=== PATIENT | male | born 1970 | race Caucasian/White ===

== ENCOUNTER 2018-02-19 23:24 | Inpatient (IN) | payer BC, OTHER ==
[~2018-02-19] VITALS: Ht 185.4 cm; Wt 152.8 kg
[2018-02-20 00:12] LABS: BASO % 0.4 %; BASO ABS # 0.03 K/uL (0-0.2); EOS % 2.6 %; EOS ABS # 0.19 K/uL (0-0.5); HEMATOCRIT 38.3 % (42-52); HEMOGLOBIN 13.3 g/dL (14.0-18.0); IG# 0.02 K/uL (0.00-0.02); LYMPH % 28.7 %; LYMPH ABS # 2.09 K/uL (1.2-3.4); MEAN CELL VOLUME 88.2 fL (80-100); MEAN CORPUSCULAR HEMOGLOBIN 30.6 pg (25-34); MEAN CORPUSCULAR HGB CONC 34.7 g/dl (32-36); MEAN PLATELET VOLUME 10.4 fL (7.4-10.4); MONO % 7.6 %; MONO ABS # 0.55 K/uL (0.11-0.59); NEUT % 60.4 %; NEUT ABS # 4.39 K/uL (1.4-6.5); PLATELET COUNT 262 K/uL (130-400); RED CELL DISTRIBUTION WIDTH CV 13.1 % (11.5-14.5); WHITE BLOOD COUNT 7.27 K/uL (4.8-10.8)
[2018-02-20 00:29] LABS: ALBUMIN 3.9 gm/dl (3.4-5.0); ALT/SGPT 109 U/L (12-78); AST/SGOT 72 U/L (15-37); BLOOD UREA NITROGEN 15 mg/dl (7-18); CALCIUM 8.8 mg/dl (8.5-10.1); CARBON DIOXIDE 28 mmol/L (21-32); CREATININE 0.91 mg/dl (0.60-1.40); GLUCOSE 185 mg/dl (70-99); LIPASE 97 U/L (73-393); POTASSIUM 3.3 mmol/L (3.5-5.1); SODIUM 137 mmol/L (136-145)
[2018-02-20 00:43] LABS: ALKALINE PHOSPHATASE 78 U/L (45-117); CKMB 12.7 ng/ml (0.5-3.6)
[2018-02-20] MEDS ORDERED: SODIUM CHLORIDE 0.9% 1000ML 1,000 ML IV STA (01:20)
[2018-02-20] MEDS ORDERED: LSN/10125 PO (01:30)
[2018-02-20] MEDS ORDERED: [UNRECOGNIZED DRUG - CODE] PO (01:33)
[2018-02-20] MEDS ORDERED: IBUP1CAP9 PO (01:33)
[2018-02-20] MEDS ORDERED: CHOL1000 PO (01:33)
[2018-02-20] MEDS ORDERED: CLR10 PO (01:33)
[2018-02-20] MEDS ORDERED: ASCA500 PO (01:33)
[2018-02-20] MEDS ORDERED: B-COTAB18 PO (01:33)
[2018-02-20] MEDS ORDERED: MISC1CAP69 PO (01:33)
[2018-02-20] MEDS ORDERED: OPTIRAY 320 IV PRN (01:45)
[2018-02-20] MEDS ORDERED: LACTATED RINGER'S 1000ML 1,000 ML IV STA (02:29)
[2018-02-20] MEDS ORDERED: POTASSIUM CHLORIDE 10 MEQ TABCR PO STA (02:38)
--- NOTE | 2018-02-20 03:05 | EMERGENCY ROOM VISIT NOTE ---
History Report prepared by Charito: Katt Middleton Under the Supervision of: Dr. Mendez Sue M.D. First contact with patient: 23:38 Chief Complaint: GI ASSESSMENT Stated Complaint: CHEST DISCOMFORT, BLOATED, HEAVY BREATHING Nursing Triage Summary: Pt c/o of upper abdominal pain that radiates to right shoulder since Saturday. Pt also stated he has had frequent belching, denies nausea or vomiting. Pt states he started a "diet pill" Saturday that was prescribed by his PCP. Pt also states he has been under a lot of stress lately, verbalizes history of anxiety. History of Present Illness The patient is a 47 year old male who presents to the Emergency Room with complaints of intermittent chest pain starting yesterday. The pain radiates to his right shoulder. It does not change with movement, breathing, exertion, or eating. He has not taken anything for his pain. He reports cold sweats and acid reflux symptoms last night. He was unable to sleep well. He has been SOB with exertion. He reports cough. His blood pressure has been higher than normal. He notes that he has gained 35-40 lbs in the past 3-4 months. He has had some swelling to the legs. He has been under increased stress recently. His left with the children, leaving him alone. He admits to frequent alcohol use recently, but stopped drinking 3 days ago. He recently started smoking again. He reports a history of anxiety. He denies any thoughts of hurting himself or others. Pt denies LOC, headache, fevers, visual changes, neck pain, tearing pain radiating to the back, personal history or family history of aneurysm or pulmonary embolism, coagulation abnormalities, prolonged travel, recent surgery or immobilization, nausea, vomiting, abdominal pain, melena, hematochezia, urinary symptoms, numbness, weakness, lymphadenopathy, rash, or other complaints. Source of History: patient Onset: yesterday Position: chest Symptom Intensity: 10 Quality: other (pain) Timing: intermittent Modifying Factors (Worsening): other (none) Associated Symptoms: + chills, + diaphoresis, + cough, + SOB Note: Pt reports weight gain, high blood pressure. Review of Systems See HPI for pertinent positives and negatives. A total of ten systems were reviewed and were otherwise negative. Past Medical & Surgical Medical Problems: (1) Hypertension Family History Hypertension Social History Smoking Status: Never Smoker Housing Status: lives alone Current/Historical Medications Scheduled Ascorbic Acid (Vitamin C), 500 MG PO DAILY B-Complex Vitamins (Vitamin B Complex), 1 TAB PO DAILY Cholecalciferol (Vitamin D3), 1 TAB PO DAILY Hctz/Lisinopril (Lisinopril/Hctz 10/12.5 Mg), 1 TAB PO DAILY Ibuprofen (Ibuprofen), 400-600 MG PO QAM Loratadine (Claritin), 10 MG PO DAILY Misc Natural Products ([employer]), 1 DOSE PO DAILY Multiple Vitamins W/ Iron (Multiple Vitamins/Iron), 1 TAB PO DAILY Allergies Coded Allergies: No Known Allergies (Verified , 02/20/18) Physical Exam Vital Signs Date Time Temp Pulse Resp B/P (MAP) Pulse Ox O2 Delivery O2 Flow Rate FiO2 02/20/18 01:19 90 20 150/95 98 Room Air 02/20/18 00:21 95 02/20/18 00:09 97 Room Air 02/20/18 00:09 97 Room Air 02/19/18 23:29 36.4 110 18 161/107 97 Room Air Physical Exam GENERAL: Awake, alert, mildly depressed-appearing, in no distress HENT: Normocephalic, atraumatic. Oropharynx unremarkable. EYES: Normal conjunctiva. Sclera non-icteric. NECK: Supple. No nuchal rigidity. FROM. No masses. RESPIRATORY: Clear to auscultation. No wheezes. No rales. Normal respiratory effort. CARDIAC: Borderline tachycardic rate. Normal rhythm. No murmurs. No rubs. Extremities warm and well perfused. Pulses equal. No JVD. GI: Soft, non-distended. No tenderness to palpation. No rebound or guarding. No masses. RECTAL: Deferred. MUSCULOSKELETAL: Atraumatic. Chest examination reveals mild right anterior chest wall tenderness. The back is symmetrical on inspection without obvious abnormality. There is no CVA tenderness to palpation. No joint edema. LOWER EXTREMITIES: Calves are equal size bilaterally and non-tender. Trace edema. No discoloration. NEURO: Normal sensorium. No sensory or motor deficits noted. SKIN: No rash or jaundice noted. PSYCH: No SI. No HI. Mildly depressed mood, flat affect. Medical Decision & Procedures ER Provider Diagnostic Interpretation: Chest x-ray. Findings: A chest x-ray was performed and revealed no pneumothorax , effusion, infiltrate, pulmonary edema, free air under the diaphragm, or wide mediastinum. Laboratory Results 02/19/18 23:55 Red Blood Count 4.34, Mean Corpuscular Volume 88.2, Mean Corpuscular Hemoglobin 30.6, Mean Corpuscular Hemoglobin Concent 34.7, Mean Platelet Volume 10.4, Neutrophils (%) (Auto) 60.4, Lymphocytes (%) (Auto) 28.7, Monocytes (%) (Auto) 7.6, Eosinophils (%) (Auto) 2.6, Basophils (%) (Auto) 0.4, Neutrophils # (Auto) 4.39, Lymphocytes # (Auto) 2.09, Monocytes # (Auto) 0.55, Eosinophils # (Auto) 0.19, Basophils # (Auto) 0.03 02/19/18 23:55 Test 02/19/18 23:55 02/20/18 00:09 White Blood Count 7.27 K/uL (4.8-10.8) Red Blood Count 4.34 M/uL (4.7-6.1) Hemoglobin 13.3 g/dL (14.0-18.0) Hematocrit 38.3 % (42-52) Mean Corpuscular Volume 88.2 fL (80-100) Mean Corpuscular Hemoglobin 30.6 pg (25-34) Mean Corpuscular Hemoglobin Concent 34.7 g/dl (32-36) Platelet Count 262 K/uL (130-400) Mean Platelet Volume 10.4 fL (7.4-10.4) Neutrophils (%) (Auto) 60.4 % Lymphocytes (%) (Auto) 28.7 % Monocytes (%) (Auto) 7.6 % Eosinophils (%) (Auto) 2.6 % Basophils (%) (Auto) 0.4 % Neutrophils # (Auto) 4.39 K/uL (1.4-6.5) Lymphocytes # (Auto) 2.09 K/uL (1.2-3.4) Monocytes # (Auto) 0.55 K/uL (0.11-0.59) Eosinophils # (Auto) 0.19 K/uL (0-0.5) Basophils # (Auto) 0.03 K/uL (0-0.2) RDW Standard Deviation 42.0 fL (36.4-46.3) RDW Coefficient of Variation 13.1 % (11.5-14.5) Immature Granulocyte % (Auto) 0.3 % Immature Granulocyte # (Auto) 0.02 K/uL (0.00-0.02) Anion Gap 8.0 mmol/L (3-11) Est Creatinine Clear Calc Drug Dose 156.0 ml/min Estimated GFR () 116.7 Estimated GFR (Non- 100.7 BUN/Creatinine Ratio 16.1 (10-20) Calcium Level 8.8 mg/dl (8.5-10.1) Total Bilirubin 0.5 mg/dl (0.2-1) Direct Bilirubin 0.2 mg/dl (0-0.2) Aspartate Amino Transf (AST/SGOT) 72 U/L (15-37) Alanine Aminotransferase (ALT/SGPT) 109 U/L (12-78) Alkaline Phosphatase 78 U/L (45-117) Total Creatine Kinase 1388 U/L (39-308) Creatine Kinase MB 12.7 ng/ml (0.5-3.6) Creatine Kinase MB Ratio 0.9 (0-3.0) Troponin I < 0.015 ng/ml (0-0.045) Total Protein 8.0 gm/dl (6.4-8.2) Albumin 3.9 gm/dl (3.4-5.0) Lipase 97 U/L (73-393) Bedside D-Dimer > 450 ng/mlFEU (0-450) Laboratory results reviewed by me Medications Administered Medications (Trade) Dose Ordered Sig/Carlie Route Start Time Stop Time Status Last Admin Dose Admin Sodium Chloride 1,000 ml @ 999 mls/hr Q1H1M STAT IV 02/20/18 01:20 02/20/18 02:20 DC 02/20/18 01:31 999 MLS/HR Lactated Ringer's 1,000 ml @ 200 mls/hr Q5H STAT IV 02/20/18 02:29 02/20/18 07:28 02/20/18 02:45 200 MLS/HR ECG Per My Interpretation Indication: chest pain Rate (beats per minute): 93 Rhythm: normal sinus Findings: no acute ischemic change, no ectopy, other (normal intervals) ED Course 2339: The patient was evaluated in room C9. A complete history and physical exam was performed. 0120: NSS 1000 ml @ 999 mls/hr IV. 0124: I reevaluated the patient. I updated him on the results. Medical Decision Triage Nursing notes reviewed and agree them. The patient's history was concerning for chest pain. Differential diagnosis: Etiologies such as cardiac ischemia, aortic dissection, pulmonary embolism, pneumonia, pneumothorax, musculoskeletal, infections, pericarditis, myocarditis , esophageal rupture, gastrointestinal, as well as others were entertained. Physical examination: As above. ER treatment provided: Normal saline hydration 1 L bolus Lactated Ringer's at 200 mL an hour On reassessment the patient was stable Diagnostic interpretation by me: The electrocardiogram was negative for pathologic change. The labs revealed an unremarkable CBC. Chemistry panel revealed mild elevation of AST and ALT. Troponin negative. Total CK markedly elevated at 1388. The patient's d-dimer was mildly elevated. Imaging studies: Chest x-ray as above. CT scan pending. The patient has chest pain. He has concerning elevation of his total CK consistent with rhabdomyolysis. Consultation: A consultation was placed with the hospitalist. The case was discussed and diagnostics were reviewed. The patient was evaluated in the ER for further treatment. Medication Reconcilliation Current Medication List: was personally reviewed by me Blood Pressure Screening Patient's blood pressure: Elevated blood pressure Consults Time Called: [phone] Consulting Physician: Dr. Quiroz Returned Call: [phone] Discussed the patient's history and presentation. He will evaluate the patient for further management. Impression Primary Impression: Right-sided chest pain Additional Impression: Rhabdomyolysis Scribe Attestation The scribe's documentation has been prepared under my direction and personally reviewed by me in its entirety. I confirm that the note above accurately reflects all work, treatment, procedures, and medical decision making performed by me. Departure Information Dispostion Being Evaluated By Hospitalist Referrals Eliecer Dumont M.D. (PCP) Patient Instructions My [facility] Problem Qualifiers
[2018-02-20 03:07] VITALS: O2SAT 97
[2018-02-20] MEDS ORDERED: PANTOprazole SOD 40 MG TAB PO ONE (03:38)
[2018-02-20] MEDS ORDERED: LISINOPRIL 10 MG TAB PO ONE (03:38)
[2018-02-20] MEDS ORDERED: LORAZEPAM 2 MG/ML 1 ML VIAL IV PRN (03:45)
[2018-02-20] MEDS ORDERED: MULTI-VITAMIN INFUSION INJ 10 ML, THIAMINE HCL INJ 100 MG, FoLIC ACID INJ 1 MG, POTASSI... IV ONE ×5 (03:45)
[2018-02-20] MEDS ORDERED: MoRPHine SULFATE 4 MG/ML 1 ML CARP\\VIAL IV PRN (03:45)
[2018-02-20] MEDS ORDERED: ACETAMINOPHEN 325 MG TAB PO PRN (03:45)
[2018-02-20] MEDS ORDERED: OXYCODONE HCL IR 5 MG TAB (IMMEDIATE RELEASE) PO PRN (03:45)
[2018-02-20] MEDS ORDERED: PROCHLORPERAZINE INJ 5 MG in SYRINGE 4 ML IV PRN (03:45)
[2018-02-20] MEDS ORDERED: NITROGLYCERIN 0.4 MG SL PER TAB CHARGE SL PRN (03:45)
[2018-02-20] MEDS ORDERED: SODIUM CHLORIDE 0.9% 1000ML 1,000 ML IV ONE (03:45)
[2018-02-20] MEDS ORDERED: GABAPENTIN 600 MG TAB PO SCH (03:45)
[2018-02-20 04:00] VITALS: BP 155/99; PULSE 89; TEMP 36.9; O2SAT 95; Ht 185.4 cm; Wt 152.8 kg
[2018-02-20] MEDS ORDERED: GABAPENTIN 1200MG LOADING DOSE PO ONE (04:30)
[2018-02-20] MEDS ORDERED: NURSING VERBAL MED ORDER ONE (05:00)
[2018-02-20 05:33] LABS: BASO % 0.5 %; BASO ABS # 0.03 K/uL (0-0.2); EOS % 4.4 %; EOS ABS # 0.24 K/uL (0-0.5); HEMATOCRIT 35.3 % (42-52); HEMOGLOBIN 12.3 g/dL (14.0-18.0); IG# 0.02 K/uL (0.00-0.02); LYMPH % 31.6 %; LYMPH ABS # 1.73 K/uL (1.2-3.4); MEAN CELL VOLUME 89.1 fL (80-100); MEAN CORPUSCULAR HEMOGLOBIN 31.1 pg (25-34); MEAN CORPUSCULAR HGB CONC 34.8 g/dl (32-36); MEAN PLATELET VOLUME 9.8 fL (7.4-10.4); MONO % 7.5 %; MONO ABS # 0.41 K/uL (0.11-0.59); NEUT % 55.6 %; NEUT ABS # 3.04 K/uL (1.4-6.5); PLATELET COUNT 209 K/uL (130-400); RED CELL DISTRIBUTION WIDTH CV 13.3 % (11.5-14.5); RED CELL DISTRIBUTION WIDTH SD 43.3 fL (36.4-46.3); WHITE BLOOD COUNT 5.47 K/uL (4.8-10.8)
[2018-02-20 06:02] LABS: ALBUMIN 3.5 gm/dl (3.4-5.0); ALKALINE PHOSPHATASE 68 U/L (45-117); ALT/SGPT 95 U/L (12-78); AST/SGOT 64 U/L (15-37); BLOOD UREA NITROGEN 12 mg/dl (7-18); CALCIUM 8.2 mg/dl (8.5-10.1); CARBON DIOXIDE 28 mmol/L (21-32); CREATININE 0.75 mg/dl (0.60-1.40); GLUCOSE 156 mg/dl (70-99); POTASSIUM 3.8 mmol/L (3.5-5.1); SODIUM 138 mmol/L (136-145)
--- NOTE | 2018-02-20 06:05 | DIAGNOSTIC IMAGING REPORT ---
(CHEST FOR PE) ANGIO WITH CT DOSE: 552.34 mGycm HISTORY: Chest pain dyspnea TECHNIQUE: Multiaxial CT images of the chest were performed following the intravenous administration of contrast to evaluate the pulmonary arteries. Maximal intensity projection images were also obtained. A dose lowering technique was utilized adhering to the principles of ALARA. COMPARISON STUDY: None. FINDINGS: There is a normal caliber thoracic aorta with no evidence for dissection. There is no evidence for pulmonary embolus. No pleural effusions. No pneumothorax. The liver and spleen are unremarkable. No mediastinal or hilar lymphadenopathy. The central airways are patent. The lungs are clear. Fatty infiltration of liver IMPRESSION: No evidence for pulmonary embolus. Lungs are clear. Fatty infiltration of the liver. The above report was generated using voice recognition software. It may contain grammatical, syntax or spelling errors. Electronically signed by: Joe Vega M.D. 02/20/2018 6:03 AM Dictated Date/Time: 02/20/2018 6:02 AM
--- NOTE | 2018-02-20 07:29 | DIAGNOSTIC IMAGING REPORT ---
SINGLE VIEW CHEST CLINICAL HISTORY: Atypical chest pain. FINDINGS: An AP, portable, upright chest radiograph is obtained. No prior studies are available for comparison at the time of dictation. The examination is degraded by portable technique and patient rotation. The cardiomediastinal silhouette is unremarkable. There is mild elevation right hemidiaphragm. The lungs and pleural spaces are clear. No pneumothorax is seen. The bony thorax is grossly intact. IMPRESSION: No acute cardiopulmonary abnormality. Electronically signed by: Iggy Cobian M.D. 02/20/2018 7:28 AM Dictated Date/Time: 02/20/2018 7:28 AM
[2018-02-20 07:50] VITALS: BP 134/81; PULSE 80; TEMP 36.6; O2SAT 98
--- NOTE | 2018-02-20 07:50 | HISTORY & PHYSICAL EXAMINATION ---
DATE OF ADMISSION: 02/20/2018 PRIMARY CARE PHYSICIAN: Dr. Dumont. CHIEF COMPLAINT: Chest pain. HISTORY OF PRESENT ILLNESS: History obtained from patient and records. Medical history significant for hypertension, past tobacco abuse, alcohol abuse , prediabetes as per records, istory of chronic anemia (baseline hemoglobin of 13) . Patient admits to increased alcohol intake secondary to family issues about 5 days ago, passing out from too much drinking. Yesterday he had burning epigastric discomfort going to the chest which she thinks is from reflux. Upon checking his blood pressure, SBP noted to be 150s. Patient thinks he might be depressed, denies suicidality. Patient currently comfortable at the ER. MEDICAL HISTORY: As above. No history of seizures or intubation from alcohol withdrawal. About 2 weeks ago, the patient seen at PCP's office for pedal edema from [facility]. SBP noted to be 150s. Patient started on lisinopril HCTZ. Amlodipine stopped. SURGERIES: Vasectomy and tonsillectomy. HOME MEDICATIONS: Lisinopril HCTZ. ALLERGIES: POLLEN, NORVASC. FAMILY HISTORY: Alcoholism. PERSONAL AND SOCIAL HISTORY: Past tobacco abuse, ongoing alcohol abuse, skills director. REVIEW OF SYSTEMS: As per HPI. All 10 systems reviewed. All other ROS negative. PHYSICAL EXAMINATION: VITAL SIGNS: Blood pressure was noted to be 161/107, pulse rate 90, RR 20, temperature 37, O2 sats 92 on room air. GENERAL: Slightly anxious, obese. No respiratory distress. SKIN: Pallor, warm. HEENT: Pale palpebral conjunctiva. No ptosis. Dry mucosa. NECK: Short, supple. CHEST: Decreased breath sounds. Nontender. HEART: Regular rate and rhythm, no murmur, no tenderness. ABDOMEN: Some distention, nontender. EXTREMITIES: No edema. No gross deformity. No tenderness NEUROLOGIC: Coherent. No gross focality. LABORATORIES: Hemoglobin was noted to be 13.3, hematocrit 32.7, white blood cell count 10, platelets 262. Sodium noted to be 137, potassium 3.5, chloride 101, CO1 28, BUN 15, creatinine 0.9, glucose 185, AST 72, ALT 109. CK was noted to be 1388. CT chest, no PE on initial read. EKG as per my interpretation, rate 90, normal sinus rhythm, no ischemia. ASSESSMENT: 1. Chest pain multifactorial : Hypertensive urgency secondary to alcohol withdrawal. Uncontrolled gastroesophageal reflux disease. 2. Hypokalemia secondary to diuretic therapy. 3. Mild rhabdomyolysis secondary to immobility following alcohol intoxication from a few days ago 4. possible mood disorder. 5. Past tobacco abuse. 6. Prediabetes as per records. 7. Chronic anemia, hemoglobin at baseline. PLAN: PCU titrate lisinopril. Replace potassium. Hold home diuretic for now. Initiate PPI for GERD. IVF for rhabdomyolysis follow CPK DT precautions. Inpatient psychiatric evaluation for possible depression if patient agreeable Social service RE discharge planning. Check hemoglobin A1c. DVT prophylaxis, Lovenox subQ. Full code. MTDD
[2018-02-20] MEDS ORDERED: ENOXAPARIN 40 MG/0.4 ML SYR SC SCH (08:00)
[2018-02-20] MEDS ORDERED: CALCIUM GLUCONATE 10% 1,000 MG in SODIUM CHLORIDE 0.9% 50ML 50 ML IV STA (08:29)
[2018-02-20] MEDS: GABAPENTIN 600MG Q6H DOSE PO SCH ×2 (09:01→15:47)
[2018-02-20 09:06] LABS: HEMOGLOBIN A1C 7.4 % (4.5-5.6)
[2018-02-20 12:25] VITALS: BP 149/80; PULSE 86; TEMP 36.7; O2SAT 98
[2018-02-20 15:20] VITALS: BP 134/87; PULSE 70; TEMP 36.8; O2SAT 98
[2018-02-20 15:52] VITALS: BP 134/87; PULSE 70; TEMP 36.8; O2SAT 98
--- NOTE | 2018-02-20 16:21 | Progress Note ---
Subjective Date of Service: Feb 20, 2018. Subjective Pt evaluation today including: conversation w/ patient, physical exam, lab review, review of studies, review of inpatient medication list Saw/examined the patient in room 233. Patient states he's doing okay, denies any chest pain or palpitations. Spoke to patient further and he became tearful about home situation and possible separation from his . He also mentions abusing alcohol recently due to home stressors; he stopped drinking on Saturday. Now attends AA meetings, first meeting was on February 17 and he would like to continue going to these meetings. His lower extremity swelling has improved after stopping CCB. He states he feels much better and would like to be discharged home. I informed him about the new diabetes diagnosis; he is agreeable to start oral medications for this. Problem List Medical Problems: (1) Rhabdomyolysis Status: Acute (2) Right-sided chest pain Status: Acute Review of Systems Constitutional: No fever, No chills Respiratory: No cough, No sputum, No wheezing, No shortness of breath, No dyspnea on exertion, No dyspnea at rest, No hemoptysis Cardiac: + edema (improving), No chest pain (resolved), No palpitations Abdomen: No pain, No nausea, No vomiting, No diarrhea Musculoskeletal: No joint pain Male : No dysuria, No urinary frequency Psychiatric: + see HPI, + depression symptoms, + substance abuse, No anhedonism , No anxiety, No insomnia Heme: No abnormal bleeding/bruising Medications Current Inpatient Medications Medications (Trade) Dose Ordered Sig/Carlie Route Start Time Stop Time Status Last Admin Dose Admin Ioversol (Optiray 320) 125 ml UD PRN IV 02/20/18 01:45 02/24/18 01:44 Enoxaparin Sodium (Lovenox Inj) 40 mg Q24H SC 02/20/18 08:00 03/22/18 07:59 02/20/18 09:00 40 MG Acetaminophen (Tylenol Tab) 325 mg Q6H PRN PO 02/20/18 03:45 03/22/18 03:44 Nitroglycerin (Nitrostat Tab) 0.4 mg UD PRN SL 02/20/18 03:45 03/22/18 03:44 Oxycodone HCl (Roxicodone Immediate Rel Tab) 5 mg Q4H PRN PO 02/20/18 03:45 03/06/18 03:44 Prochlorperazine Edisylate 5 mg/ Syringe 5 ml @ 5 mls/min Q6H PRN IV 02/20/18 03:45 03/22/18 03:44 Morphine Sulfate (MoRPHine SULFATE INJ) 4 mg Q3H PRN IV 02/20/18 03:45 03/06/18 03:44 Pantoprazole Sodium (Protonix Tab) 40 mg QAM PO 02/21/18 09:00 03/23/18 08:59 Lisinopril (Zestril Tab) 10 mg QAM PO 02/21/18 09:00 03/23/18 08:59 Lorazepam (Ativan Inj) PRN Dosing -Active Protocol Q1H PRN IV 02/20/18 03:45 03/22/18 03:44 Thiamine HCl (Vitamin B-1 Tab) 100 mg QAM PO 02/21/18 09:00 03/23/18 08:59 Multivitamins (Multivitamin Tab) 1 tab QAM PO 02/21/18 09:00 03/23/18 08:59 Folic Acid (Folvite Tab) 1 mg QAM PO 02/21/18 09:00 03/23/18 08:59 Gabapentin (Neurontin Tab) 600 mg Q8H PO 02/21/18 00:00 02/21/18 16:01 Gabapentin (Neurontin Tab) 600 mg Q12H PO 02/22/18 06:00 02/22/18 18:01 Gabapentin (Neurontin Tab) 600 mg Q24H PO 02/23/18 18:00 02/23/18 18:01 Objective Vital Signs Date Time Temp Pulse Resp B/P (MAP) Pulse Ox O2 Delivery O2 Flow Rate FiO2 02/20/18 15:52 36.8 70 20 98 Room Air 02/20/18 15:20 36.8 70 20 134/87 (103) 98 Room Air 02/20/18 12:25 36.7 86 16 149/80 (103) 98 Room Air 02/20/18 12:00 Room Air 02/20/18 08:00 Room Air 02/20/18 07:50 36.6 80 16 134/81 (98) 98 Room Air 02/20/18 04:00 36.9 89 20 155/99 (117) 95 Room Air 02/20/18 04:00 36.9 89 20 155/99 02/20/18 03:07 83 20 137/80 97 Room Air 02/20/18 01:19 90 20 150/95 98 Room Air 02/20/18 00:21 95 02/20/18 00:09 97 Room Air 02/20/18 00:09 97 Room Air 02/19/18 23:29 36.4 110 18 161/107 97 Room Air Physical Exam General Appearance: no apparent distress, + obese, + pertinent finding ( tearful at times during exam) Respiratory/Chest: chest non-tender, lungs clear, normal breath sounds, no respiratory distress, no accessory muscle use Cardiovascular: regular rate, rhythm, no murmur Abdomen: normal bowel sounds, non tender, soft Extremities: + swelling (+1 pitting edema b/l LE), + pertinent finding Neurologic/Psychiatric: no motor/sensory deficits, alert, normal mood/affect Laboratory Results Last 24 Hours Test 02/19/18 23:55 02/20/18 00:09 02/20/18 02:55 02/20/18 05:17 White Blood Count 7.27 K/uL 5.47 K/uL Red Blood Count 4.34 M/uL 3.96 M/uL Hemoglobin 13.3 g/dL 12.3 g/dL Hematocrit 38.3 % 35.3 % Mean Corpuscular Volume 88.2 fL 89.1 fL Mean Corpuscular Hemoglobin 30.6 pg 31.1 pg Mean Corpuscular Hemoglobin Concent 34.7 g/dl 34.8 g/dl Platelet Count 262 K/uL 209 K/uL Mean Platelet Volume 10.4 fL 9.8 fL Neutrophils (%) (Auto) 60.4 % 55.6 % Lymphocytes (%) (Auto) 28.7 % 31.6 % Monocytes (%) (Auto) 7.6 % 7.5 % Eosinophils (%) (Auto) 2.6 % 4.4 % Basophils (%) (Auto) 0.4 % 0.5 % Neutrophils # (Auto) 4.39 K/uL 3.04 K/uL Lymphocytes # (Auto) 2.09 K/uL 1.73 K/uL Monocytes # (Auto) 0.55 K/uL 0.41 K/uL Eosinophils # (Auto) 0.19 K/uL 0.24 K/uL Basophils # (Auto) 0.03 K/uL 0.03 K/uL RDW Standard Deviation 42.0 fL 43.3 fL RDW Coefficient of Variation 13.1 % 13.3 % Immature Granulocyte % (Auto) 0.3 % 0.4 % Immature Granulocyte # (Auto) 0.02 K/uL 0.02 K/uL Sodium Level 137 mmol/L 138 mmol/L Potassium Level 3.3 mmol/L 3.8 mmol/L Chloride Level 101 mmol/L 104 mmol/L Carbon Dioxide Level 28 mmol/L 28 mmol/L Anion Gap 8.0 mmol/L 6.0 mmol/L Blood Urea Nitrogen 15 mg/dl 12 mg/dl Creatinine 0.91 mg/dl 0.75 mg/dl Est Creatinine Clear Calc Drug Dose 156.0 ml/min 189.8 ml/min Estimated GFR () 116.7 127.5 Estimated GFR (Non- 100.7 110.0 BUN/Creatinine Ratio 16.1 16.6 Random Glucose 185 mg/dl 156 mg/dl Calcium Level 8.8 mg/dl 8.2 mg/dl Magnesium Level 2.1 mg/dl Total Bilirubin 0.5 mg/dl 0.6 mg/dl Direct Bilirubin 0.2 mg/dl Aspartate Amino Transf (AST/SGOT) 72 U/L 64 U/L Alanine Aminotransferase (ALT/SGPT) 109 U/L 95 U/L Alkaline Phosphatase 78 U/L 68 U/L Total Creatine Kinase 1388 U/L 1137 U/L Creatine Kinase MB 12.7 ng/ml Creatine Kinase MB Ratio 0.9 Troponin I < 0.015 ng/ml < 0.015 ng/ml Total Protein 8.0 gm/dl 7.0 gm/dl Albumin 3.9 gm/dl 3.5 gm/dl Lipase 97 U/L Thyroid Stimulating Hormone (TSH) 2.130 uIu/ml Bedside D-Dimer > 450 ng/mlFEU Urine Color YELLOW Urine Appearance CLEAR Urine pH 5.0 Urine Specific [place] > 1.045 Urine Protein NEG Urine Glucose (UA) NEG Urine Ketones NEG Urine Occult Blood NEG Urine Nitrite NEG Urine Bilirubin NEG Urine Urobilinogen NEG Urine Leukocyte Esterase NEG Urine Opiates Screen NEG Urine Methadone, Qualitative NEG Urine Barbiturates NEG Urine Phencyclidine (PCP) Level NEG Ur Amphetamine/Methamphetamine NEG MDMA (Ecstasy) Screen NEG Urine Benzodiazepines Screen NEG Urine Cocaine Metabolite NEG Urine Marijuana (THC) NEG Prothrombin Time 10.9 SECONDS Prothromb Time International Ratio 1.0 Estimated Average Glucose 166 mg/dl Hemoglobin A1c 7.4 % Globulin 3.5 gm/dl Albumin/Globulin Ratio 1.0 Ethyl Alcohol mg/dL < 3.0 mg/dl Assessment and Plan This is a 47 year old obese male with a PMH of hypertension, anxiety, prediabetes - presents with alcohol abuse, chest pain, and high blood pressure and subsequently found to have new onset diabetes Hypertensive Urgency - patient's blood pressure on admission > 160/100 - blood pressure improved now - will increase outpatient Lisinopril/HCTZ dose - outpatient blood pressure check with Dr. Dumont on February 25 at 11:05AM New Diagnosis of DM2 - Ha1c ~ 7.4% - patient had prediabetes previously - agreeable to start metformin - outpatient lab work - Ha1c q3 months; should get a urinary microalbumin level - patient to see client operations manager for weight loss help - already on an VERONICA-I for nephro-protection - will start aspirin 81mg - will start Lipitor 20mg Alcohol Abuse - recently has been abusing alcohol - has been going to AA meetings - would like to continue outpatient AA meetings - states he does not want to see psychiatrist or start any mediations for depression or anxiety - would like to cope on his own and states that once stressors in his life improve, he will be fine - PCP follow-up regarding mood and alcohol cessation Chest Pain Lower Extremity Edema - the chest pain is more likely related to reflux and recent alcohol use; could also be related to anxiety/mood - cardiac enzymes negative x3 - outpatient echo to evaluate lower extremity edema - starting on low dose aspirin DVT ppx - Lovenox FULL CODE
[2018-02-20] MEDS ORDERED: ASPI1TAB83 PO (16:26)
[2018-02-20] MEDS ORDERED: OMEP20TA14 PO (16:26)
[2018-02-20] MEDS ORDERED: LSN/2025 PO (16:26)
[2018-02-20] MEDS ORDERED: ATOR-54 PO (16:26)
[2018-02-20] MEDS ORDERED: METF500T5 PO (16:26)
--- NOTE | 2018-02-20 16:35 | Discharge Instructions ---
Discharge Instructions Date of Service Feb 20, 2018. Admission Reason for Admission: Alcohol Withdrawal Discharge Discharge Diagnosis / Problem: high blood pressure, diabetes, alcohol use Discharge Goals Goal(s): Decrease discomfort, Improve function, Diagnostic testing, Therapeutic intervention Activity Recommendations Activity Limitations: resume your previous activity . Instructions / Follow-Up Instructions / Follow-Up Please follow-up with Dr. Dumont on February 25 at 11:05AM * Your dose of Lisinopril/HCTZ will be doubled to 20mg/25mg - primary care should recheck the blood pressure in the office and adjust accordingly * You are now diagnosed with diabetes - you will be prescribed metformin for diabetes * You will be prescribed Lipitor for cholesterol - your LDL (bad cholesterol) was high * You will need a Ha1c and a fasting lipid profile in 3 months. You should also have your urine checked in three months * You will be started on aspirin 81mg (over the counter dose) * Outpatient echocardiogram to evaluate for lower extremity edema * Continue with your outpatient AA meetings * Talk to your primary care regarding alcohol cessation or anxiety/mood disorder Current Hospital Diet Patient's current hospital diet: AHA Diet (Heart Healthy) Discharge Diet Recommended Diet: AHA Diet (Heart Healthy) Pending Studies Studies pending at discharge: no Laboratory Results Hemoglobin A1c Test 02/20/18 05:17 Range/Units Estimated Average Glucose 166 mg/dl Hemoglobin A1c 7.4 H 4.5-5.6 % Medical Emergencies . Who to Call and When: Medical Emergencies: If at any time you feel your situation is an emergency, please call 911 immediately. . Non-Emergent Contact Non-Emergency issues call your: Primary Care Provider . . "Provider Documentation" section prepared by Sahara Merida. .
--- NOTE | 2018-02-20 16:39 | Discharge Summary ---
Discharge Summary Date of Service Feb 20, 2018. Discharge Summary Admission Date: Feb 20, 2018 at 03:00 Discharge Date: Feb 20, 2018 Discharge Disposition: Home Principal Diagnosis: Hypertensive Urgency New Diabetes Mellitus type 2 Alcohol Abuse Hyperlipidemia Obesity Medication Reconciliation New Medications: Aspirin (Aspirin) 81 Mg Tab 1 TAB PO DAILY for 30 Days, #30 TAB 3 Refills Atorvastatin (Lipitor) 20 Mg Tab 1 TAB PO DAILY for 90 Days, #90 TAB 1 Refill Metformin Hcl Er (Glucophage Er) 500 Mg Tab 500 MG PO BID for 30 Days, #60 TAB Omeprazole Magnesium (Prilosec Otc) 20 Mg Tab 1 TAB PO DAILY for 30 Days, #30 TAB 0 Refills Changed Medications: Hctz/Lisinopril (Lisinopril/Hctz 20/25 Mg) 1 Ea Tab 1 TAB PO DAILY for 30 Days, #30 TAB (Changed from: Hctz/Lisinopril (Lisinopril/ Hctz 10/12.5 Mg) 1 Ea Tab 1 Tab PO DAILY) Continued Medications: Ascorbic Acid (Vitamin C) 500 Mg Tab 500 MG PO DAILY B-Complex Vitamins (Vitamin B Complex) 1 Tab Tab 1 TAB PO DAILY Cholecalciferol (Vitamin D3) 1,000 Unit Tab 1 TAB PO DAILY, TAB 3 Refills Loratadine (Claritin) 10 Mg Tab 10 MG PO DAILY, TAB Misc Natural Products (Nexant) 1 Cap Cap 1 DOSE PO DAILY Multiple Vitamins W/ Iron (Multiple Vitamins/Iron) 1 Tab Tab 1 TAB PO DAILY Discontinued Medications: Ibuprofen (Ibuprofen) 200 Mg Cap 400-600 MG PO QAM Admission Information HPI (per Admitting provider): DATE OF ADMISSION: 02/20/2018 PRIMARY CARE PHYSICIAN: Dr. Dumont. CHIEF COMPLAINT: Chest pain. HISTORY OF PRESENT ILLNESS: History obtained from patient, records. The patient seen 02/20/2018. Medical history significant for hypertension, past tobacco abuse, alcohol abuse, prediabetes as per records, no mood disorder as per patient, history of chronic anemia baseline hemoglobin of 13. About 2 weeks ago, the patient seen at PCP's office for pedal edema from [facility]. SBP noted to be 150s. The patient started on lisinopril HCTZ, amlodipine stopped at home. The patient admits to increased alcohol intake secondary to family issues about 5 days ago, passing out from too much drinking. He had epigastric discomfort going to the chest. Upon checking his blood pressure, noted to be 150s. He went to the ER. Currently comfortable. MEDICAL HISTORY: As above. No history of ____ seizures from alcohol withdrawal. The patient thinks he might be depressed, denies suicidality. SURGERIES: Vasectomy and ____. HOME MEDICATIONS: Lisinopril HCTZ. ALLERGIES: POLLEN, NORVASC. FAMILY HISTORY: Alcoholism. 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 REVIEW OF SYSTEMS: As per HPI. All 10 systems reviewed. All other ROS negative. PHYSICAL EXAMINATION: VITAL SIGNS: Blood pressure was noted to be 161/107, later 159, pulse rate 90, RR 20, temperature ____, sats 92 on room air. GENERAL: Slightly anxious, obese. No respiratory distress. SKIN: Pallor, warm. HEENT: Pale palpebral conjunctiva. No ptosis. Dry mucosa. NECK: Short, supple. CHEST: Decreased breath sounds. Nontender. HEART: Regular rate and rhythm, no murmur, no tenderness. ABDOMEN: Some distention, nontender. EXTREMITIES: No edema. No gross deformity. NEUROLOGIC: Coherent. No gross focality. LABORATORIES: Hemoglobin was noted to be 13.3, hematocrit 32.7, white blood cell count ____, platelets 262. Sodium noted to be 137, potassium ____, chloride 101, CO1 28, BUN 15, creatinine 0.9, glucose 185, AST 72, ALT 109. CK was noted to be 1388. CT chest, no initial read. EKG as per my interpretation, rate 190, normal sinus rhythm, no ischemia. CK was ____, mild rhabdo. ASSESSMENT: 1. Chest pain multifactorial : Hypertensive urgency secondary to alcohol withdrawal. Uncontrolled gastroesophageal reflux disease. 2. Hypokalemia secondary to diuretic therapy. 3. Mild rhabdomyolysis secondary to immobility following alcohol intoxication from a few days ago 4. possible mood disorder. 5. Past tobacco abuse. 6. Prediabetes as per records. 7. Chronic anemia, hemoglobin at baseline. PLAN: PCU titrate lisinopril. Replace potassium. Hold home diuretic for now. Initiate PPI for GERD. IVF for rhabdomyolysis follow CPK DT precautions. Inpatient psychiatric evaluation for possible depression if patient agreeable Social service RE discharge planning. Check hemoglobin A1c. DVT prophylaxis, Lovenox subQ. Full code. Hospital Course This is a 47 year old obese male with a PMH of hypertension, anxiety, prediabetes - presents with alcohol abuse, chest pain, and high blood pressure and subsequently found to have new onset diabetes Hypertensive Urgency - patient's blood pressure on admission > 160/100 - blood pressure improved now - will increase outpatient Lisinopril/HCTZ dose - outpatient blood pressure check with Dr. Dumont on February 25 at 11:05AM New Diagnosis of DM2 - Ha1c ~ 7.4% - patient had prediabetes previously - agreeable to start metformin - outpatient lab work - Ha1c q3 months; should get a urinary microalbumin level - patient to see maintenance and engineering manager for weight loss help - already on an VERONICA-I for nephro-protection - will start aspirin 81mg - will start Lipitor 20mg Alcohol Abuse - recently has been abusing alcohol - has been going to AA meetings - would like to continue outpatient AA meetings - states he does not want to see psychiatrist or start any mediations for depression or anxiety - would like to cope on his own and states that once stressors in his life improve, he will be fine - PCP follow-up regarding mood and alcohol cessation Chest Pain Lower Extremity Edema - the chest pain is more likely related to reflux and recent alcohol use; could also be related to anxiety/mood - cardiac enzymes negative x3 - outpatient echo to evaluate lower extremity edema - starting on low dose aspirin DVT ppx - Lovenox FULL CODE Total time spent on discharge = 45 minutes This includes examination of the patient, discharge planning, medication reconciliation, and communication with other providers. Discharge Instructions Please follow-up with Dr. Dumont on February 25 at 11:05AM * Your dose of Lisinopril/HCTZ will be doubled to 20mg/25mg - primary care should recheck the blood pressure in the office and adjust accordingly * You are now diagnosed with diabetes - you will be prescribed metformin for diabetes * You will be prescribed Lipitor for cholesterol - your LDL (bad cholesterol) was high * You will need a Ha1c and a fasting lipid profile in 3 months. You should also have your urine checked in three months * You will be started on aspirin 81mg (over the counter dose) * Outpatient echocardiogram to evaluate for lower extremity edema * Continue with your outpatient AA meetings * Talk to your primary care regarding alcohol cessation or anxiety/mood disorder
[2018-02-21] MEDS ORDERED: GABAPENTIN 600MG Q8H DOSE PO SCH
[2018-02-21] MEDS ORDERED: LISINOPRIL 10 MG TAB PO SCH (09:00)
[2018-02-21] MEDS ORDERED: THIAMINE HCL 100 MG TAB PO SCH (09:00)
[2018-02-21] MEDS ORDERED: PANTOprazole SOD 40 MG TAB PO SCH (09:00)
[2018-02-21] MEDS ORDERED: MULTIVITAMIN TAB PO SCH (09:00)
[2018-02-22] MEDS ORDERED: GABAPENTIN 600MG Q12H DOSE PO SCH (06:00)
[2018-02-23] MEDS ORDERED: GABAPENTIN 600MG X1 DOSE PO SCH (18:00)
--- NOTE | 2018-02-25 11:39 | EDITING REQUIRED CODING QUERY ---
CODING QUERY To promote full compliance with coding requirements relating to patient care, provider participation is requested in all cases of wire coater uncertainty. Please assist us with the question(s) below: Coding Question(s): Please clarify for accurate coding purposes if the patient has: Alcohol Abuse ( ) Alcohol Dependence ( ) Other ( ) Unspecified ( ) Physician's Response(s): I believe Dr. Navarro is covering for this patient Thank you Rachel Benites Principal Diagnosis: "_that condition established after study, to be chiefly responsible for occasioning the admission of the patient to the hospital for care." Co-Existing Principal Diagnosis: "_when two or more diagnoses equally meet the criteria for principal diagnosis as determined by the circumstances of admission, diagnostic work up, and/or therapy provided, and the Alphabetic Index, Tabular List, or another coding guideline does not provide sequencing direction, any one of the diagnoses may be sequenced first." "When the physician has documented what appears to be a current diagnosis in the body of the record, but has not included the diagnosis in the final diagnostic statement, the physician should be asked whether the diagnosis should be added." (Source Coding [facility] 2 QTR90. p3-4)
== END 2018-02-20 17:20 | disposition home or self-care (01) | DRG 305 ==
LOC: C.EDB 23:25 → C.2T 02-20 03:00 → ENRESERV 02-20 03:35
PROVIDERS: ADMIT Internal Medicine; ATTEND Family Medicine
DX: I16.0 Hypertensive urgency (principal); M62.82 Rhabdomyolysis; F10.239 Alcohol dependence with withdrawal, unspecified; Z68.41 Body mass index [BMI] 40.0-44.9, adult; F39 Unspecified mood [affective] disorder; F41.9 Anxiety disorder, unspecified; E11.9 Type 2 diabetes mellitus without complications; R60.0 Localized edema; E78.5 Hyperlipidemia, unspecified; E66.9 Obesity, unspecified; K21.9 Gastro-esophageal reflux disease without esophagitis; Z87.891 Personal history of nicotine dependence; Z98.52 Vasectomy status; Z82.49 Family history of ischemic heart disease and other diseases of the circulatory system; Z81.1 Family history of alcohol abuse and dependence

== ENCOUNTER 2018-03-13 02:01 | Emergency (ER) | payer BC ==
[~2018-03-13] VITALS: Ht 188 cm; Wt 144.7 kg
[~2018-03-13 02:01] MED LIST: ASCA500 PO; ASPI1TAB83 PO; ATOR-54 PO; B-COTAB18 PO; CHOL1000 PO; CLR10 PO; LSN/2025 PO; METF500T5 PO; MISC1CAP69 PO; OMEP20TA14 PO; [UNRECOGNIZED DRUG - CODE] PO
[2018-03-13 02:04] VITALS: TEMP 36.6; Ht 188 cm; Wt 144.7 kg
[2018-03-13 02:28] VITALS: O2SAT 96
[2018-03-13] MEDS ORDERED: SODIUM CHLORIDE 0.9% 1000ML 1,000 ML IV ONE (02:30)
[2018-03-13] MEDS ORDERED: GI COCKTAIL PO ONE (02:30)
[2018-03-13] MEDS ORDERED: PANTOprazole INJ 40 MG in SYRINGE 0 ML IV ONE (02:30)
[2018-03-13] MEDS ORDERED: LIDOCAINE HCL 2% VISC SOLN 20 ML UDC ONE (02:34)
[2018-03-13] MEDS ORDERED: ALUMINUM/MAGNESIUM SUSP 30 ML UDC ONE (02:34)
[2018-03-13 02:44] LABS: BASO % 0.3 %; BASO ABS # 0.02 K/uL (0-0.2); EOS % 3.3 %; EOS ABS # 0.26 K/uL (0-0.5); HEMOGLOBIN 12.9 g/dL (14.0-18.0); IG# 0.01 K/uL (0.00-0.02); LYMPH % 28.7 %; LYMPH ABS # 2.28 K/uL (1.2-3.4); MEAN CELL VOLUME 88.5 fL (80-100); MEAN CORPUSCULAR HEMOGLOBIN 30.9 pg (25-34); MEAN CORPUSCULAR HGB CONC 34.9 g/dl (32-36); MEAN PLATELET VOLUME 10.1 fL (7.4-10.4); MONO ABS # 0.48 K/uL (0.11-0.59); NEUT % 61.6 %; PLATELET COUNT 277 K/uL (130-400); RED CELL DISTRIBUTION WIDTH CV 12.7 % (11.5-14.5); RED CELL DISTRIBUTION WIDTH SD 40.8 fL (36.4-46.3); WHITE BLOOD COUNT 7.95 K/uL (4.8-10.8)
[2018-03-13] MEDS ORDERED: ASPI1TAB48 PO (02:45)
[2018-03-13] MEDS ORDERED: ATOR-22 PO (02:46)
[2018-03-13] MEDS ORDERED: LISI-788 PO (02:48)
[2018-03-13] MEDS ORDERED: METF500T5 PO (02:50)
[2018-03-13] MEDS ORDERED: PRLSR20 PO (02:51)
[2018-03-13 03:07] LABS: ALBUMIN 3.7 gm/dl (3.4-5.0); CALCIUM 8.6 mg/dl (8.5-10.1); CREATININE 0.94 mg/dl (0.60-1.40); POTASSIUM 2.7 mmol/L (3.5-5.1)
[2018-03-13] MEDS ORDERED: POTASSIUM CHLR 20 MEQ / WTR 20 MEQ IV STA (03:08)
[2018-03-13 03:10] LABS: CKMB 1.6 ng/ml (0.5-3.6); TOTAL PROTEIN 7.6 gm/dl (6.4-8.2)
[2018-03-13] MEDS: POTASSIUM CHLR 10 MEQ / WTR 100 ML IV SCH ×2 (03:49→05:00)
[2018-03-13] MEDS ORDERED: KETOROLAC TROMETHAMINE 30 MG/ML VIAL IV STA (04:49)
[2018-03-13 06:27] VITALS: BP 119/72; PULSE 79; O2SAT 96
--- NOTE | 2018-03-13 07:03 | DIAGNOSTIC IMAGING REPORT ---
ABD/PELVIS NO IV OR ORAL CONT CT DOSE: 1857.96 mGy.cm HISTORY: Pain Left side abd pain TECHNIQUE: Multiaxial CT images of the abdomen and pelvis were performed without contrast. A dose lowering technique was utilized adhering to the principles of ALARA. COMPARISON STUDY: None. FINDINGS: Lung bases are clear. Minimal dependent atelectasis. Mild splenomegaly. Fatty infiltration of liver. Pancreas is uniform. Slight nonspecific fullness right renal pelvis. No evidence for hydronephrosis. Scattered colonic diverticulosis with no evidence for acute diverticulitis. The bladder is midline. IMPRESSION: 1. Mild fatty infiltration of liver. 2. Scattered colonic diverticulosis with no evidence for acute diverticulitis. The above report was generated using voice recognition software. It may contain grammatical, syntax or spelling errors. Electronically signed by: Joe Vega M.D. 03/13/2018 7:01 AM Dictated Date/Time: 03/13/2018 6:59 AM
--- NOTE | 2018-03-14 03:00 | EMERGENCY ROOM VISIT NOTE ---
History First contact with patient: 02:09 Chief Complaint: ABDOMINAL PAIN Stated Complaint: UPR LFT SIDE ABD PAIN AROUND TO BACK FOR 10 HRS Nursing Triage Summary: patient complains of left upper quadrant pain that has been constant since 1500 History of Present Illness The patient is a 47 year old male who presents to the Emergency Room with complaints of left upper quadrant abdominal pain for the past 10 hours. The patient states that his discomfort worsens when he presses in the area or if he takes a deep breath. He has not had fever or chills. He is not reporting significant chest pain, chest tightness, or shortness of breath. He has been able to eat and drink as normal. The patient is under increased stressors in his personal life as his recently left him. He is attending Alcoholics Anonymous and is 3 weeks sober. The patient has a known history of GERD, but he states this feels different from that. Different twisting and movement of his torso seems to worsen his symptoms as well. He has not had vomiting, lower abdominal pain, diarrhea, or constipation. He has not taken anything over-the- counter for his pain today, which he rates a sharp 8/10. Review of Systems More than 10 systems were reviewed and otherwise negative with the exception of history of present illness. Past Medical/Surgical History Medical Problems: (1) Alcohol withdrawal (2) Hypertension Family History Hypertension Social History Smoking Status: Never Smoker Housing Status: lives alone Current/Historical Medications Scheduled Ascorbic Acid (Vitamin C), 500 MG PO DAILY Aspirin (Aspirin Low Dose), 81 MG PO DAILY Atorvastatin (Lipitor), 20 MG PO DAILY B-Complex Vitamins (Vitamin B Complex), 1 TAB PO DAILY Cholecalciferol (Vitamin D3), 1,000 UNITS PO DAILY Lisinopril/Hctz (Zestoretic 20MG/25MG), 1 TAB PO DAILY Loratadine (Claritin), 10 MG PO DAILY Metformin Hcl Er (Glucophage Er), 1 TAB PO BID Multiple Vitamins W/ Iron (Multiple Vitamins/Iron), 1 TAB PO DAILY Omeprazole (Prilosec), 20 MG PO DAILY Physical Exam Vital Signs Date Time Temp Pulse Resp B/P (MAP) Pulse Ox O2 Delivery O2 Flow Rate FiO2 03/13/18 06:27 79 18 119/72 96 03/13/18 05:20 79 18 115/64 96 Room Air 03/13/18 04:15 85 28 125/70 94 Room Air 03/13/18 03:45 82 16 127/66 96 Room Air 03/13/18 02:37 87 03/13/18 02:28 96 Room Air 03/13/18 02:04 36.6 94 20 139/83 96 Room Air Physical Exam VITALS: Vitals are noted on the nurse's note and reviewed by myself. Vital signs stable. GENERAL: Well-developed, well-nourished, white male, who is in no acute distress and resting comfortably. Patient is cooperative with the examination. HEAD: Normocephalic atraumatic. NECK: Supple without nuchal rigidity. No lymphadenopathy. No thyromegaly. Cervical spine is nontender. HEART: Regular rate and rhythm without murmurs gallops or rubs. LUNGS: Clear to auscultation bilaterally without wheezes, rales or rhonchi. No retractions or accessory muscle use. ABDOMEN: Positive normal bowel sounds x 4. Soft, nontender, without masses or organomegaly. No guarding or rebound tenderness. MUSCULOSKELETAL: No muscle atrophy, erythema, or edema noted. Full range of motion in all extremities. No tenderness to palpation. NEURO: Patient was alert and oriented to person place and time. CN II through XII grossly intact. No focal neurological deficits. Deep tendon reflexes 2+ throughout. SKIN: The skin was without rashes or lesions. Medical Decision & Procedures ER Provider Diagnostic Interpretation: ABD/PELVIS NO IV OR ORAL CONT CT DOSE: 1857.96 mGy.cm HISTORY: Pain Left side abd pain TECHNIQUE: Multiaxial CT images of the abdomen and pelvis were performed without contrast. A dose lowering technique was utilized adhering to the principles of ALARA. COMPARISON STUDY: None. FINDINGS: Lung bases are clear. Minimal dependent atelectasis. Mild splenomegaly. Fatty infiltration of liver. Pancreas is uniform. Slight nonspecific fullness right renal pelvis. No evidence for hydronephrosis. Scattered colonic diverticulosis with no evidence for acute diverticulitis. The bladder is midline. IMPRESSION: 1. Mild fatty infiltration of liver. 2. Scattered colonic diverticulosis with no evidence for acute diverticulitis. Laboratory Results 03/13/18 02:38 Red Blood Count 4.18, Mean Corpuscular Volume 88.5, Mean Corpuscular Hemoglobin 30.9, Mean Corpuscular Hemoglobin Concent 34.9, Mean Platelet Volume 10.1, Neutrophils (%) (Auto) 61.6, Lymphocytes (%) (Auto) 28.7, Monocytes (%) (Auto) 6.0, Eosinophils (%) (Auto) 3.3, Basophils (%) (Auto) 0.3, Neutrophils # (Auto) 4.90, Lymphocytes # (Auto) 2.28, Monocytes # (Auto) 0.48, Eosinophils # (Auto) 0.26, Basophils # (Auto) 0.02 03/13/18 02:38 Test 03/13/18 02:37 03/13/18 02:38 03/13/18 03:55 Bedside D-Dimer 164 ng/mlFEU (0-450) Bedside Troponin I < 0.030 ng/ml (0-0.045) White Blood Count 7.95 K/uL (4.8-10.8) Red Blood Count 4.18 M/uL (4.7-6.1) Hemoglobin 12.9 g/dL (14.0-18.0) Hematocrit 37.0 % (42-52) Mean Corpuscular Volume 88.5 fL (80-100) Mean Corpuscular Hemoglobin 30.9 pg (25-34) Mean Corpuscular Hemoglobin Concent 34.9 g/dl (32-36) Platelet Count 277 K/uL (130-400) Mean Platelet Volume 10.1 fL (7.4-10.4) Neutrophils (%) (Auto) 61.6 % Lymphocytes (%) (Auto) 28.7 % Monocytes (%) (Auto) 6.0 % Eosinophils (%) (Auto) 3.3 % Basophils (%) (Auto) 0.3 % Neutrophils # (Auto) 4.90 K/uL (1.4-6.5) Lymphocytes # (Auto) 2.28 K/uL (1.2-3.4) Monocytes # (Auto) 0.48 K/uL (0.11-0.59) Eosinophils # (Auto) 0.26 K/uL (0-0.5) Basophils # (Auto) 0.02 K/uL (0-0.2) RDW Standard Deviation 40.8 fL (36.4-46.3) RDW Coefficient of Variation 12.7 % (11.5-14.5) Immature Granulocyte % (Auto) 0.1 % Immature Granulocyte # (Auto) 0.01 K/uL (0.00-0.02) Anion Gap 5.0 mmol/L (3-11) Est Creatinine Clear Calc Drug Dose 148.9 ml/min Estimated GFR () 112.2 Estimated GFR (Non- 96.8 BUN/Creatinine Ratio 16.9 (10-20) Calcium Level 8.6 mg/dl (8.5-10.1) Magnesium Level 1.9 mg/dl (1.8-2.4) Total Bilirubin 0.3 mg/dl (0.2-1) Aspartate Amino Transf (AST/SGOT) 39 U/L (15-37) Alanine Aminotransferase (ALT/SGPT) 82 U/L (12-78) Alkaline Phosphatase 74 U/L (45-117) Total Creatine Kinase 237 U/L (39-308) Creatine Kinase MB 1.6 ng/ml (0.5-3.6) Creatine Kinase MB Ratio 0.7 (0-3.0) Total Protein 7.6 gm/dl (6.4-8.2) Albumin 3.7 gm/dl (3.4-5.0) Globulin 3.9 gm/dl (2.5-4.0) Albumin/Globulin Ratio 0.9 (0.9-2) Amylase Level 40 U/L (25-115) Lipase 150 U/L (73-393) Urine Color YELLOW Urine Appearance CLEAR (CLEAR) Urine pH 6.5 (4.5-7.5) Urine Specific [place] 1.012 (1.000-1.030) Urine Protein NEG (NEG) Urine Glucose (UA) NEG (NEG) Urine Ketones NEG (NEG) Urine Occult Blood NEG (NEG) Urine Nitrite NEG (NEG) Urine Bilirubin NEG (NEG) Urine Urobilinogen NEG (NEG) Urine Leukocyte Esterase NEG (NEG) Medications Administered Medications (Trade) Dose Ordered Sig/Carlie Route Start Time Stop Time Status Last Admin Dose Admin Sodium Chloride 1,000 ml @ 999 mls/hr Q1H1M ONCE IV 03/13/18 02:30 03/13/18 03:30 DC 03/13/18 02:38 999 MLS/HR Pantoprazole Sodium 40 mg/ Syringe 10 ml @ 5 mls/min NOW ONCE IV 03/13/18 02:30 03/13/18 02:31 DC 03/13/18 02:53 5 MLS/MIN Al Hydroxide/Mg Hydroxide (Maalox Susp) 30 ml STK-MED ONCE .ROUTE 03/13/18 02:34 03/13/18 02:35 DC 03/13/18 02:38 30 ML Lidocaine HCl (Viscous Lidocaine 2% Soln) 20 ml STK-MED ONCE .ROUTE 03/13/18 02:34 03/13/18 02:35 DC 03/13/18 02:38 20 ML Potassium Chloride 100 ml @ 100 mls/hr Q1H IV 03/13/18 03:30 03/13/18 05:29 DC 03/13/18 05:00 100 MLS/HR Ketorolac Tromethamine (Toradol Inj) 30 mg NOW STAT IV 03/13/18 04:49 03/13/18 04:50 DC 03/13/18 05:49 30 MG ECG Per My Interpretation Change: Normal sinus rhythm @87 bpm Minimal voltage criteria for LVH, may be normal variant Inferior infarct , age undetermined Abnormal ECG When compared with ECG of 19-FEB-2018 23:50, No significant change was found ED Course Physical exam and history were performed. Nursing notes, EMR, and Medication List were personally reviewed. Patient appears to have left upper quadrant abdominal pain for the past several hours. The patient does not appear to have rash or injury to this area. IV access was established and labs were obtained. The patient was hydrated and medicated as above. CT scan was performed. Because of the left-sided nature, EKG was performed and is as above without obvious ischemic findings. The patient was placed on a radiation monitor. Patient's blood work is as above and was reviewed. He does not have a significantly elevated white blood cell count, gross anemia, or bandemia. His potassium is low and this was repleted through his IV. Lipase and transaminases are negative. Troponin and d-dimer are both negative. The patient does have a history of rhabdomyolysis, however today his CK is essentially normal. The patient remained in normal sinus rhythm on the radiation monitor. His CT scan is as above and reviewed by myself and radiology as showing no significant acute process. The patient remained in stable condition throughout his ER stay. He continues without significant reproducible abdominal tenderness. He does not appear to have an acute surgical abdomen. The patient seems well for discharge home. He does have a history of GERD as well as increased stressors in his life as his recently left him. I will have him follow-up very closely with his primary care physician for further care and management. He was otherwise invited back to the ER with any new, worsening, or concerning symptoms. The chart was completed utilizing [employer] Speech Voice Recognition Software. Grammatical errors, random word insertions, pronoun errors, and incomplete sentences are an occasional consequence of this system due to software limitations, ambient noise, and hardware issues. Any formal questions or concerns about the content, text, or information contained within the body of this dictation should be directly addressed to the provider for clarification. . Medical Decision Differential diagnosis: Etiologies such as cardiopulmonary etiology, early shingles, appendicitis, diverticulitis, PUD, biliary pathology, UTI, pancreatitis, obstruction, mesenteric ischemia, aortic pathology, infections, inflammatory bowel disease, renal colic, as well as others were entertained. Impression Primary Impression: Left upper quadrant abdominal pain of unknown etiology Additional Impression: Low blood potassium Departure Information Dispostion Home / Self-Care Condition GOOD Forms Call Back Authorization, HOME CARE DOCUMENTATION FORM, IMPORTANT VISIT INFORMATION Patient Instructions My [facility] Additional Instructions You were seen and evaluated today on an emergency basis only. This is not a substitute for, or an effort to provide, complete comprehensive medical care. It is not possible to recognize and treat all injuries or illnesses in a single emergency department visit. For this reason it is recommended that you followup with your primary care physician in the next 12-36 hours for recheck of your condition. Drink plenty of fluids and remain well-hydrated. You are welcome to return to the emergency department anytime with new, worsening, or concerning symptoms. Problem Qualifiers
== END 2018-03-13 06:29 | disposition home or self-care (01) ==
LOC: C.EDB 02:02
DX: R10.12 Left upper quadrant pain (principal); E87.6 Hypokalemia; I10 Essential (primary) hypertension; Z79.82 Long term (current) use of aspirin